=== PATIENT | male | born 1950 | race Caucasian/White ===

== ENCOUNTER 2017-09-24 22:29 | Observation (INO) | payer MEDICARE, SELFPAY ==
[2017-09-24 22:59] LABS: #Basophils 0.1 thou/uL (0.0-0.2); #Eosinphils 0.4 thou/uL (0.0-0.7); #Lymphocytes 2.7 thou/uL (1.20-3.40); #Monocytes 0.6 thou/uL (0.11-0.59); #Neutrophils 4.9 thou/uL (1.40-6.50); %Basophils 1.5 % (0.0-1.0); %Eosinophils 4.1 % (0.0-10.0); %Lymphocytes 30.7 % (21.0-51.0); %Monocytes 7.2 % (0.0-10.0); %Neutrophils 56.5 % (42.0-75.0); Hemoglobin 14.6 g/dL (14.0-18.0); Mean Corpuscular HGB CONC 32.8 g/dL (32.0-36.0); Mean Corpuscular Volume 94.3 fl (80.0-94.0); Platelet Count 166 thou/uL (130-400); Red Blood Cell (RBC) Count 4.73 mill/uL (4.70-6.10); White Blood Cell (WBC) Count 8.6 thou/uL (4.8-10.8)
--- NOTE | 2017-09-24 23:02 | RAD ---
ONE VIEW CHEST 09/24/17 HISTORY: Chest pain. COMPARISON: 05/16/05. FINDINGS: Atherosclerosis of the aorta. Normal cardiac silhouette. Pulmonary vessels are normal. Costophrenic a ngles are clear. Diminished lung volumes likely due to poor inspiratory effort. No masses or consolid ation. Stable elevation of the right hemidiaphragm. No pneumothorax. IMPRESSION: No acute cardiopulmonary process. POS: [facility]
[2017-09-24 23:16] LABS: ALT (SGPT) 41 U/L (8-55); AST (SGOT) 25 U/L (5-34); Albumin 4.4 g/dL (3.4-4.8); Alkaline Phosphatase 59 U/L (40-150); Anion Gap 14 mmol/L (10-20); BUN (Urea Nitrogen) 14 mg/dL (8.4-25.7); Bilirubin, Total 0.3 mg/dL (0.2-1.2); Calc. Creatinine Clearance 0 mL/min (70-130); Calcium 9.5 mg/dL (7.8-10.44); Carbon Dioxide 24 mmol/L (23-31); Chloride 108 mmol/L (98-107); Estimated GFR-MDRD 84; Globulin 2.6 g/dL (2.4-3.5); Glucose 113 mg/dL (80-115); Potassium 3.4 mmol/L (3.5-5.1); Sodium 143 mmol/L (136-145)
[2017-09-24 23:19] LABS: CKMB 1.8 ng/mL (0-6.6)
[2017-09-25] MEDS ORDERED: Ondansetron HCl/PF 4 MG/2 ML Vial IVP PRN (01:24)
[2017-09-25] MEDS ORDERED: Acetaminophen 325 MG TAB PO PRN (01:24)
[2017-09-25] MEDS ORDERED: Ondansetron ODT 4 MG TAB SL PRN (01:24)
[2017-09-25 01:54] VITALS: BMI 29.2
[2017-09-25 02:41] LABS: Troponin I Less than 0.010 ng/mL (< 0.028)
[2017-09-25 05:52] LABS: Troponin I 0.015 ng/mL (< 0.028)
[2017-09-25] MEDS ORDERED: ADENOSINE 60 MG/20 ML VIAL ONE (12:00)
[2017-09-25 12:29] VITALS: BP 138/69; TEMP 97.6
[2017-09-25] MEDS ORDERED: cloNIDine 0.1 MG TAB PO PRN (12:34)
[2017-09-25] MEDS ORDERED: Lisinopril/Hydrochlorothiazide 20 mg/12.5 mg Tablet PO SCH (12:45)
--- NOTE | 2017-09-25 14:21 | NM ---
NUCLEAR MEDICINE CARDIAC STRESS TEST WITH EJECTION FRACTION: HISTORY: Chest pain. Hypertension. Dyslipidemia. Smoker. COMPARISON: Stress test from 2016. TECHNIQUE: Stress and rest was performed after the intravenous administration of 30 and 10.5 mCi technetium-99m sestamibi, respectively. Exam was performed using nuclear Adenosine stress protocol. FINDINGS: No scar or ischemia. Normal wall motion. Ejection fraction is calculated at 57%. Normal wall motion. IMPRESSION: 1. Normal cardiac stress test. 2. Ejection fraction 57%. POS: [facility]
--- NOTE | 2017-09-25 17:15 | SS ---
PRIMARY CARE PHYSICIAN: Dr. Yoni Mondragon. CHIEF COMPLAINT: Chest pain/pressure. HISTORY OF PRESENT ILLNESS: The patient states that he was followed by his PCP on outpatient basis i n the last 1-2 weeks for elevated blood pressure sometimes reaching 100-110 on diastolic and above 16 0 on systolics, was reinitiated on blood pressure medications including lisinopril 20 mg and metoprol ol, broke out in a rash and hives following metoprolol which is a new medication for himself, he disc ontinued that medication and hives resolved, was continued on lisinopril at this point in time; [facility], had a recurrence of elevated blood pressures, chest pain, pressure, [facility] PAST MEDICAL HISTORY AND PAST SURGICAL HISTORY: Includes esophageal reflux, hyperlipidemia, anxiety disorder, prior fracture of left distal radius, cholecystectomy, and colonoscopy with polyp in 2009. SOCIAL HISTORY: Social drinker, current smoker. with 2 children. FAMILY HISTORY: Mother and father with coronary artery disease. Mother with prior stroke. ALLERGIES: Include METOPROLOL. OUTPATIENT MEDICATIONS: Lisinopril 20 mg, simvastatin 40 mg and baby aspirin 81 mg. REVIEW OF SYSTEMS: No fevers or chills, no headache or vision changes, no shortness of breath or whe marianne. Positive tobacco exposure. Positive chest pain, pressure, now currently resolved. The abdomin al pain is negative. No diarrhea, no vomiting. No lower extremity cyanosis or edema reported. PHYSICAL EXAMINATION: VITAL SIGNS: On arrival to floor 98.3, pulse is 65, respiratory rate of 18, oxygen saturation 96% on room air, and blood pressure 118/72. GENERAL: The patient is alert and oriented, no acute distress. HEENT: Normocephalic, atraumatic. Extraocular movements are intact. Sclerae are clear. Oral mucos a is moist. NECK: Supple. CARDIAC: Regular rate and rhythm. Systolic murmur present throughout. LUNGS: Clear to auscultation bilaterally. No rubs or wheezes. ABDOMEN: Soft, nontender, positive bowel sounds throughout. EXTREMITIES: Lower extremities without cyanosis or edema. NEUROLOGIC: The patient is alert and oriented x3, no focal deficits. Speech is normal. LABORATORY WORK: White blood cell count of 8.6, hemoglobin of 14.6, platelet count of 166. Troponin s x3 less than 0.02. BNP of 16. Sodium of 143, potassium of 3.5, CO2 of 24, creatinine of 0.91, glu cose of 113, AST of 25, ALT of 41, serum albumin of 4.4. Chest x-ray without acute cardiopulmonary e vents. Stress test Lexiscan with ejection fraction estimated to be 57%, no motion wall, ischemia or defects. Normal wall movement per dictated report. ASSESSMENT: Chest pain, rule out myocardial infarction, hypertensive urgency. 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 PLAN: Troponins negative. Stress test normal. Discharged home with change of blood pressure medica tions, adding Norvasc 5 mg converting lisinopril to lisinopril/hydrochlorothiazide 20/12.5, discontin uation of metoprolol agreed, marked as allergy. The patient interested in seeking possible Chantix w celeste Vallejo on an outpatient basis regarding smoking cessation, has appointment with Dr. Ridge arnett this week, I believe, on and clonidine p.r.n. for systolic or diastolic elevation over 165/110. Medications sent to [facility]. Follow up with Dr. Vallejo in 1 week or sooner if there any elevated blood pressures on ambulatory screening. DISCHARGE DIET: Low sodium. DISCHARGE CONDITION: Good. No consultations performed.
[2017-09-26] MEDS ORDERED: Amlodipine 5 MG TAB PO SCH (09:00)
[2017-09-26] MEDS ORDERED: Lisinopril/Hydrochlorothiazide 20 mg/12.5 mg Tablet PO SCH (09:00)
== END 2017-09-25 14:37 | disposition home or self-care (01) ==
LOC: SCSER 22:29 → 2SW 09-25 00:44
PROVIDERS: ADMIT Family Medicine; ATTEND Family Medicine
DX: R07.89 Other chest pain (principal); K21.9 Gastro-esophageal reflux disease without esophagitis; E78.5 Hyperlipidemia, unspecified; F41.9 Anxiety disorder, unspecified; F17.200 Nicotine dependence, unspecified, uncomplicated; Z88.8 Allergy status to other drugs, medicaments and biological substances; Z90.49 Acquired absence of other specified parts of digestive tract; Z98.890 Other specified postprocedural states; Z87.81 Personal history of (healed) traumatic fracture
CPT/HCPCS: 71045; 78452; 80053; 82553; 83880; 84484 ×3; 85025; 93005; 93017; 99285; 99406; A9500; G0378; 36415; J0153

== ENCOUNTER 2018-06-05 08:37 | Emergency (ER) | payer MEDICARE ==
[2018-06-05 09:16] LABS: #Basophils 0.1 thou/uL (0.0-0.2); #Eosinphils 0.2 thou/uL (0.0-0.7); #Monocytes 0.6 thou/uL (0.11-0.59); #Neutrophils 5.3 thou/uL (1.40-6.50); %Basophils 0.8 % (0.0-1.0); %Lymphocytes 23.9 % (21.0-51.0); %Monocytes 7.8 % (0.0-10.0); %Neutrophils 64.5 % (42.0-75.0); Hemoglobin 13.8 g/dL (14.0-18.0); Mean Corpuscular HGB CONC 33.9 g/dL (32.0-36.0); Mean Corpuscular Hemoglobin 31.6 pg (27.0-31.0); Mean Corpuscular Volume 93.2 fL (78.0-98.0); Mean Platelet Volume 8.4 fL (7.4-10.4); Platelet Count 127 thou/uL (130-400); RBC Distribution Width 11.3 % (11.5-14.5); Red Blood Cell (RBC) Count 4.36 mill/uL (4.70-6.10); White Blood Cell (WBC) Count 8.2 thou/uL (4.8-10.8)
--- NOTE | 2018-06-05 09:17 | RAD ---
CHEST 2 VIEWS: HISTORY: Dyspnea. Cough. COMPARISON: 05/05/2017. FINDINGS: Cardiac silhouette is magnified by projection. Pulmonary vasculature unremarkable. Right hemidiaphr agm remains elevated. Mediastinum is midline with aortic calcification. Calcified granulomata at th e left base are unchanged. No lobar consolidation, pneumothorax, or pleural fluid. IMPRESSION: No active cardiopulmonary abnormalities are demonstrated. POS: [facility]
[2018-06-05 09:25] LABS: Anion Gap 14 mmol/L (10-20); BUN (Urea Nitrogen) 19 mg/dL (8.4-25.7); Calc. Creatinine Clearance 0 mL/min (70-130); Carbon Dioxide 23 mmol/L (23-31); Chloride 107 mmol/L (98-107); Estimated GFR-MDRD Greater than 90; Glucose 108 mg/dL (80-115); Potassium 3.7 mmol/L (3.5-5.1); Sodium 140 mmol/L (136-145)
[2018-06-05 09:29] LABS: CKMB 1.4 ng/mL (0-6.6); Troponin I Less than 0.010 ng/mL (< 0.028)
== END 2018-06-05 09:35 | disposition home or self-care (01) ==
LOC: SCSER 08:37
DX: R09.82 Postnasal drip (principal); I10 Essential (primary) hypertension; E78.00 Pure hypercholesterolemia, unspecified; F17.210 Nicotine dependence, cigarettes, uncomplicated; Z79.899 Other long term (current) drug therapy
CPT/HCPCS: 36415; 71046; 80048; 82553; 84484; 85025; 93005; J7620

== ENCOUNTER 2022-10-20 19:43 | Emergency (ER) | payer MEDICARE ==
[2022-10-20] MEDS ORDERED: Ondansetron PF 4 MG/2 ML Vial ONE (20:43)
[2022-10-20] MEDS ORDERED: Morphine 4 MG/ML VIAL ONE (20:43)
== END 2022-10-20 21:22 | disposition home or self-care (01) ==
LOC: ERS 19:43
DX: S39.012A Strain of muscle, fascia and tendon of lower back, initial encounter (principal); I10 Essential (primary) hypertension; E78.00 Pure hypercholesterolemia, unspecified; F17.210 Nicotine dependence, cigarettes, uncomplicated
CPT/HCPCS: 96374; 96375; J2270; J2405

== ENCOUNTER 2024-03-20 16:48 | Outpatient (CLI) | payer MEDICARE | END 2024-03-20 16:49 | disposition home or self-care (01) | LOC: SCSRAD 16:48 | PROVIDERS: ATTEND Nurse Practitioner Family | DX: R10.9 Unspecified abdominal pain (principal) | CPT/HCPCS: 74018 ==